=== PATIENT | male | born 1970 | race Caucasian/White ===

== ENCOUNTER 2018-06-20 23:11 | Emergency (ER) | payer OTHER ==
[2018-06-20 23:18] VITALS: BP 112/76; PULSE 98; TEMP 98.2; BMI 29.2
--- NOTE | 2018-06-20 23:47 | PDOC ---
History of Present Illness - General Chief Complaint: Laceration Stated Complaint: BLEEDING FROM EAR Time Seen by Provider: 06/20/18 23:26 - History of Present Illness Initial Comments: Molina Lewis is a 47yo man with a PMH of HTN who presents with a laceration to the left ear. He reports that he was "horsing around' and his earring was pulled from his ear. The laceration would not stop bleeding at home, so he walked to the ED. He reports that he had his last tetanus shot in 2012. He is otherwise well, and his BP is well controlled. Past History - Past Medical History Allergies/Adverse Reactions: Allergies Allergy/AdvReac Type Severity Reaction Status Date / Time No Known Allergies Allergy Verified 04/14/14 15:04 Home Medications: Ambulatory Orders Ciprofloxacin [Cipro -] 500 mg PO BID #14 tablet 04/14/14 Clindamycin [Cleocin -] 300 mg PO TID #21 capsule 04/14/14 Lisinopril [Prinivil] 10 mg PO DAILY 04/14/14 Cephalexin Monohydrate [Keflex -] 250 mg PO Q6H #28 capsule 06/21/18 Diabetes: No HTN: Yes - Immunization History Immunization Up to Date: Yes - Suicide/Smoking/Psychosocial Hx Smoking History: Never smoked Have you smoked in the past 12 months: No Information on smoking cessation initiated: No Hx Alcohol Use: No Drug/Substance Use Hx: No Review of Systems - Review of Systems Comments:: General: No fevers, no chills, no weight or appetite change, no malaise HEENT: No changes in vision, no changes in hearing, no congestion, no sore throat CV: No chest pain, no palpitations, no LE edema Pulm: No SOB, no cough, no wheezing GI: No nausea or vomiting, no change in bowel habits, no melena : No frequency, no urgency, no dysuria Musc: No back pain, no joint swelling, no recent injury Skin: No rash, no lesions, no erythema Endo: No excessive thirst, no heat/cold intolerance Heme: No unusual bruising or bleeding, no swollen glands Neuro: No syncope, no numbness/tingling, no focal weakness Vasc: No claudication Psych: No recent change in mood, no SI or HI *Physical Exam - Vital Signs Last Vital Signs Temp Pulse Resp BP Pulse Ox 98.2 F 98 H 20 112/76 100 06/20/18 23:14 06/20/18 23:14 06/20/18 23:14 06/20/18 23:14 06/20/18 23:14 - Physical Exam Comments: General: Comfortable, no acute distress HEENT: PERRL, EOMI, MMM, voice normal L ear with 2cm laceration across anterior lobe. Posterior lobe and posterior inferior auricle torn away from scalp for approx 2cm. No active bleeding Cards: RRR, no murmur appreciated Pulm: Comfortable on room air Abd: Soft, nontender, nondistended Ext: Atraumatic. No LE edema. ROM intact. Strength 5/5 and equal bilaterally Vasc: Extremities WWP. Skin: Normal color, no rashes or lesions Neuro: A&Ox3, CN grossly intact, normal speech, motor/sensory grossly intact and symmetric Psych: Mood appropriate to situation Moderate Sedation - Procedure Monitoring Vital Signs: Procedure Monitoring Vital Signs Temperature 98.2 F 06/20/18 23:14 Pulse Rate 98 H 06/20/18 23:14 Respiratory Rate 20 06/20/18 23:14 Blood Pressure 112/76 06/20/18 23:14 O2 Sat by Pulse Oximetry (%) 100 06/20/18 23:14 Procedures - Laceration/Wound Repair Left Posterior Ear Wound Length: to 2.5 cm Wound Explored: clean Wound's Depth, Shape: superficial, linear Irrigated w/ Saline: Yes Betadine Prep: Yes Anesthesia: 1% Lidocaine, 2% Lidocaine Amount of Anesthetic (ccs): 5 Wound Repaired With: Sutures Suture Size/Type: 6:0 Number of Sutures: 12 (4 anterior, 8 posterior) Layer Closure: No Sterile Dressing Applied: No (Bacitracin applied, could not apply dressing to ear) Medical Decision Making - Medical Decision Making 06/20/18 23:44 Molina Lewis is a 47yo man with a PMH of HTN who presents with a laceration to the left ear lobe that will require repair. - Most recent tetanus in 2012, no need to give today - Lac to be repaired with sutures at bedside 06/21/18 00:29 - Wound repaired at bedside. Irrigated with copious saline. Anesthetized with 5cc of 1% lidocaine. 12 simple interrupted sutures placed using 6-0 proline (4 on anterior lobe, 8 on posterior lobe and pinna). Procedure was tolerated well - Bacitracin applied to laceration - Home care and follow up discussed at length. Mr Lewis states understanding Will discharge home with keflex as wound location is difficult to keep clean. Seen and discussed with Dr Bloom. Narda Muñoz PGY1 *DC/Admit/Observation/Transfer Diagnosis at time of Disposition: Laceration of ear - Discharge Dispostion Disposition: HOME Condition at time of disposition: Stable Decision to Admit order: No - Prescriptions Prescriptions: Cephalexin Monohydrate [Keflex -] 250 mg PO Q6H #28 capsule - Referrals - Patient Instructions Printed Discharge Instructions: DI for Laceration Repair Additional Instructions: Discharge Instructions: - You were seen in the emergency departement for a laceration of the left earlobe and ear - You had 12 stitches placed, 4 in the front and 8 in the back - Keep your ear dry for at least 24 hours. Do not shower tomorrow. You may shower Thursday. - Keep the wound clean and dry, but do not scrub it when you shower or clean your face. Avoid touching the wound directly if possible, but it is OK to let soap and water run over the wound. - Do not apply any lotions or ointments to the wound - You will need to return to get your stitches removed in 7 days. You may go to your regular doctor or return to the emergency room. - You have been prescribed an antibiotic. Please start taking this tomorrow morning as early as possible. It is to be taken 4 times per day for the next 7 days. Do your best to take it as close to every 6 hours as possible. You were given the first dose in the ER at around 12:30am. - Seek medical care if the would becomes severely painful, red, swollen, or has significant bleeding or yellow drainage. Some clear drainage is normal as wounds are healing, and there is likely to be some mild swelling for a day or two; however if these become severe please return to the ER. - Post Discharge Activity
--- NOTE | 2018-06-21 | PDOC ---
Attending Attestation - HPI HPI: This patient is a 47 year old male, with PMHx of hypertension, who presents with left ear laceration. Patient states that he was horsing around when his earring got caught and ripped out of his ear. 06/21/18 00:00 - Physicial Exam PE: Social Hx: EtOH use. GENERAL: Awake, alert, and fully oriented, in no acute distress. Alcohol breath HEAD: No signs of trauma EYES: PERRLA, EOMI, sclera anicteric, conjunctiva clear ENT: Left pinna through and through injury. Anterior to posterior earring hole. Posterior auricle tear .5 cm. , hearing grossly normal, nares patent, oropharynx clear without exudates. Moist mucosa NECK: Normal ROM, supple, no lymphadenopathy, JVD, or masses LUNGS: Breath sounds equal, clear to auscultation bilaterally. No wheezes, and no crackles HEART: Regular rate and rhythm, normal S1 and S2, no murmurs, rubs or gallops ABDOMEN: Soft, nontender, normoactive bowel sounds. No guarding, no rebound. No masses EXTREMITIES: Normal range of motion, no edema. No clubbing or cyanosis. No cords, erythema, or tenderness NEUROLOGICAL: Cranial nerves II through XII grossly intact. Normal speech, normal gait SKIN: Flushed. Warm, Dry, normal turgor, no rashes or lesions noted. 06/21/18 00:00 <Yahaira Mcgee - Last Filed: 06/21/18 00:00> - Resident Resident Name: Narda Muñoz - ED Attending Attestation I have performed the following: I have examined & evaluated the patient, The case was reviewed & discussed with the resident, I agree w/resident's findings & plan - Medical Decision Making 06/21/18 01:46 Pt had 12 6.0 nylon interrupted sutures placed. Excellent outcome. Pt will be sent home with keflex and bacitracin. <Altagracia Bloom - Last Filed: 06/21/18 01:50> Procedures - Laceration/Wound Repair Left Ear Wound Length: to 2.5 cm Wound's Depth, Shape: superficial, irregular, flap Irrigated w/ Saline: Yes Betadine Prep: No Anesthesia: 1% Lidocaine Suture Size/Type: 6:0 Number of Sutures: 12 Sterile Dressing Applied: Yes Splint Applied: No Sling Applied: No <Altagracia Bloom - Last Filed: 06/21/18 01:50>
[2018-06-21] MEDS ORDERED: CEPHALEXIN MONOHYDRATE 500 MG CAPSULE (UD) PO ONE (00:26)
[2018-06-21] MEDS ORDERED: CEPHALEXIN MONOHYDRATE 500 MG CAPSULE (UD) ONE (00:28)
== END 2018-06-21 00:46 | disposition home or self-care (01) ==
LOC: JER 23:11
PROC: 0HQ3XZZ Repair Left Ear Skin, External Approach (ICD-10-PCS; principal; 2018-06-20)
DX: S01.312A Laceration without foreign body of left ear, initial encounter (principal); W45.8XXA Other foreign body or object entering through skin, initial encounter; W22.8XXA Striking against or struck by other objects, initial encounter; Y93.83 Activity, rough housing and horseplay; Y92.038 Other place in apartment as the place of occurrence of the external cause; Y99.8 Other external cause status
CPT/HCPCS: 99281-25

== ENCOUNTER 2018-06-29 15:51 | Emergency (ER) | payer OTHER ==
[2018-06-29 16:19] VITALS: BP 115/65; PULSE 95; TEMP 98; BMI 28.8
--- NOTE | 2018-06-29 16:31 | PDOC ---
Suture Removal/Wound Check HPI - History of Present Illness Chief Complaint: Suture/Staple Removal(Here) Stated Complaint: SUTURE REMOVAL Time Seen by Provider: 06/29/18 16:16 History Source: Yes: Patient Exam Limitations: Yes: No Limitations Treated at: [facility] ED - Previous ED Treatment Type of procedure performed on last visit: Yes: Laceration Repair Tetanus Immunization: Yes: Up to Date Past History - Travel Traveled outside of the country in the last 30 days: No Close contact w/someone who was outside of country & ill: No - Past Medical History Allergies/Adverse Reactions: Allergies Allergy/AdvReac Type Severity Reaction Status Date / Time No Known Allergies Allergy Verified 06/29/18 16:17 Home Medications: Ambulatory Orders Ciprofloxacin [Cipro -] 500 mg PO BID #14 tablet 04/14/14 Clindamycin [Cleocin -] 300 mg PO TID #21 capsule 04/14/14 Lisinopril [Prinivil] 10 mg PO DAILY 04/14/14 Cephalexin Monohydrate [Keflex -] 250 mg PO Q6H #28 capsule 06/21/18 COPD: No Diabetes: No HTN: Yes - Immunization History Immunization Up to Date: Yes - Suicide/Smoking/Psychosocial Hx Smoking History: Never smoked Have you smoked in the past 12 months: No Information on smoking cessation initiated: No Hx Alcohol Use: No Drug/Substance Use Hx: No Suture Removal/Wound Check PE - Physical Exam Laceration/Wound Check Symptoms: reports: Improved Current Severity Level: None Maximum Severity Level: None Pain Localization: None Location of Laceration/Wound: left: Ear (12 simple interrupted sutures intact. Ear appears well healed. Wound is well approximted and healed well.) *Review of Systems - Review of Systems Able to Perform ROS?: Yes Constitutional: No: Chills, Fever, Weakness Integumentary: No: Erythema, Pruritus, Rash, Other (prurulent discharge) *Physical Exam - Vital Signs Last Vital Signs Temp Pulse Resp BP Pulse Ox 98 F 95 H 16 115/65 100 06/29/18 16:18 06/29/18 16:18 06/29/18 16:18 06/29/18 16:18 06/29/18 16:18 - Physical Exam General Appearance: Yes: Nourished, Appropriately Dressed. No: Apparent Distress Moderate Sedation - Procedure Monitoring Vital Signs: Procedure Monitoring Vital Signs Temperature 98 F 06/29/18 16:18 Pulse Rate 95 H 06/29/18 16:18 Respiratory Rate 16 06/29/18 16:18 Blood Pressure 115/65 06/29/18 16:18 O2 Sat by Pulse Oximetry (%) 100 06/29/18 16:18 Medical Decision Making - Medical Decision Making 06/29/18 21:31 Pt is a 47 y/o M who presents to the ED to have his stitches removed from his L ear Wound is well approximated and well healed No discharge 12 stitches removed from the R ear DC home Pt understands all return precautions. Answered all patient questions. *DC/Admit/Observation/Transfer Diagnosis at time of Disposition: Visit for suture removal - Discharge Dispostion Disposition: HOME Condition at time of disposition: Stable Decision to Admit order: No - Referrals Referrals: Suresh Ivory MD [Staff Physician] - - Patient Instructions Printed Discharge Instructions: DI for Suture Removal Additional Instructions: You had your stitches removed today Keep the area clean and dry You may use bacitracin on the ear once a day Return to the ED for signs of infection including fever, purulent discharge, redness, pain or if you have any other changes in your symptoms - Post Discharge Activity Forms/Work/School Notes: Back to Work
== END 2018-06-29 16:43 | disposition home or self-care (01) ==
LOC: JERFT 15:51
DX: Z48.817 Encounter for surgical aftercare following surgery on the skin and subcutaneous tissue (principal); Z48.02 Encounter for removal of sutures
CPT/HCPCS: 99281-25